=== PATIENT | female | born 1980 | race Caucasian/White ===

== ENCOUNTER → 2016-08-23 | Outpatient (CLI) | payer BC ==
[~2016-08-23] MED LIST: ACET325T38 PO; CALC-701 PO; CEPH-507 PO; HYDR-3702 PO; IBP800T PO; [UNRECOGNIZED DRUG - CODE] PO
[2016-08-23 11:03] LABS: BILIRUBIN,URINE Negative (Negative); CLARITY,URINE Clear; GLUCOSE, URINE (UA) Negative (Negative); LEUKOCYTE ESTERASE ,URINE 3+ (Negative); UROBILINOGEN,URINE 0.2 mg/dL (0.2-1.0)
[2016-08-23 11:04] LABS: COLOR,URINE Light Yellow
[2016-08-23 11:36] LABS: URINE CENTRIFUGED VOLUME 12 mL
== END ==
LOC: LAB 10:57
PROVIDERS: ATTEND Family Medicine
DX: R30.0 Dysuria (principal); R82.99 Other abnormal findings in urine
CPT/HCPCS: 81003; 81015; 87088

== ENCOUNTER → 2016-08-27 | Outpatient (CLI) | payer BC | LOC: LAB 11:46 | PROVIDERS: ATTEND Obstetrics & Gynecology | DX: O46.8X1 Other antepartum hemorrhage, first trimester (principal) | CPT/HCPCS: 36415; 84702 ==

== ENCOUNTER → 2016-08-29 | Outpatient (CLI) | payer BC | LOC: LAB 12:01 | PROVIDERS: ATTEND Obstetrics & Gynecology | DX: O46.8X1 Other antepartum hemorrhage, first trimester (principal) | CPT/HCPCS: 36415; 84702 ==

== ENCOUNTER → 2016-09-03 | Outpatient (CLI) | payer BC | LOC: LAB 12:00 | PROVIDERS: ATTEND Obstetrics & Gynecology | DX: O03.9 Complete or unspecified spontaneous abortion without complication (principal); O02.1 Missed abortion | CPT/HCPCS: 36415; 84702 ==